=== PATIENT | female | born 1965 | race Hispanic/Latino ===

== ENCOUNTER 2024-02-25 06:48 | Emergency (ER) | payer OTHER ==
[~2024-02-25] VITALS: Ht 152.4 cm; Wt 59.0 kg
[2024-02-25 06:48] VITALS: TEMP 97.7
[~2024-02-25 06:48] MED LIST: CEFUROXIME250 MG PO; HYDROCODON-ACE1 EA11 PO; IBUPROFEN600 MG PO; ONDANSETRON ODT4 MG PO
[2024-02-25 07:20] LABS: BASOPHILS # (AUTO) 0.1 (0.0-0.1); BASOPHILS % 0.6 % (0.0-1.0); EOSINOPHILS # (AUTO) 0.2 (0.0-0.4); EOSINOPHILS % 1.6 % (0.0-6.0); HEMATOCRIT 44.6 % (34.2-44.1); HEMOGLOBIN 14.2 g/dL (12.0-16.0); LYMPHOCYTES # (AUTO) 3.2 (1.0-3.2); LYMPHOCYTES % 33.1 % (18.0-39.1); MEAN CORPUSCULAR HEMOGLOBIN 30.7 pg (28-32); MEAN CORPUSCULAR HGB CONC 31.8 g/dL (31-35); MEAN CORPUSCULAR VOLUME 96.3 fL (81-99); MONOCYTES # (AUTO) 0.4 (0.2-0.8); MONOCYTES % 4.1 % (4.4-11.3); NEUTROPHILS # (AUTO) 5.7 (2.1-6.9); NEUTROPHILS % 60.1 % (38.7-80.0); PLATELET COUNT 414 x10e3/uL (140-360); RED BLOOD COUNT 4.63 x10e6/uL (3.6-5.1); RED CELL DISTRIBUTION WIDTH 12.3 % (11.7-14.4); WHITE BLOOD COUNT 9.54 x10e3/uL (4.8-10.8)
[2024-02-25 07:35] LABS: ALBUMIN 3.9 g/dL (3.5-5.0); ALBUMIN/GLOBULIN RATIO 1.1 (0.8-2.0); BILIRUBIN,TOTAL 0.3 mg/dL (0.2-1.2); CALCIUM 9.5 mg/dL (8.4-10.2); CREATININE, SERUM 0.76 mg/dL (0.57-1.11); INFLUENZA A AG NEGATIVE (NEGATIVE); INFLUENZA B AG NEGATIVE (NEGATIVE); TOTAL PROTEIN 7.5 g/dL (6.5-8.1)
[2024-02-25 07:36] LABS: CORONAVIRUS COVID-19 AG NEGATIVE (NEGATIVE)
[2024-02-25] MEDS: DIAZEPAM INJ 5 MG/ML 2 ML IV ONE (07:39)
[2024-02-25] MEDS: ONDANSETRON HCL INJ 2MG/ML 2ML 2 MG/ML VIAL IV STA (07:39)
[2024-02-25] MEDS: MECLIZINE HCL 12.5 MG TAB PO ONE (07:39)
[2024-02-25] MEDS: SODIUM CHLORIDE 0.9% 1000ML 1,000 ML IV SCH (07:39)
[2024-02-25 07:41] LABS: TROPONIN I 0.001 ng/mL (0-0.300)
[2024-02-25 07:50] LABS: INR 0.85; PARTIAL THROMBOPLASTIN TIME 24.3 seconds (23.8-35.5); PROTHROMBIN TIME 12.1 seconds (11.9-14.5)
[2024-02-25] MEDS ORDERED: MECLIZINE HCL12.5 MG PO (08:32)
[2024-02-25] MEDS ORDERED: ONDANSETRON ODT4 MG PO (08:32)
[2024-02-25 08:45] VITALS: PULSE 52; RESP 16
[2024-02-25 09:19] VITALS: PULSE 66; RESP 15; TEMP 97.9; O2SAT 98
[2024-02-25] MEDS: PROMETHAZINE 12.5MG/ NACL 0.9% 12.5 MG/50 ML BAG IV ONE (09:19)
== END 2024-02-25 09:10 | disposition home or self-care (01) ==
LOC: ER 06:53
DX: R42 Dizziness and giddiness (principal); B34.9 Viral infection, unspecified; R05.9 Cough, unspecified; R11.2 Nausea with vomiting, unspecified; R53.81 Other malaise; Z11.52 Encounter for screening for COVID-19; Z87.442 Personal history of urinary calculi
CPT/HCPCS: 36415; 70450; 71045; 80053; 82550; 83735; 84484; 85025; 85610; 85730; 87428; 93005; 99284; J2405; J3360; J7030; J8597

== ENCOUNTER 2024-05-29 19:07 | Emergency (ER) | payer OTHER ==
[~2024-05-29] VITALS: Ht 147.3 cm; Wt 59.0 kg
[~2024-05-29 19:07] MED LIST changes: +MECLIZINE HCL12.5 MG PO
[2024-05-29 19:37] LABS: BASOPHILS % 0.2 % (0.0-1.0); EOSINOPHILS # (AUTO) 0.1 (0.0-0.4); HEMOGLOBIN 14.3 g/dL (12.0-16.0); LYMPHOCYTES # (AUTO) 1.4 (1.0-3.2); LYMPHOCYTES % 15.1 % (18.0-39.1); MEAN CORPUSCULAR VOLUME 88.1 fL (81-99); MONOCYTES # (AUTO) 0.5 (0.2-0.8); NEUTROPHILS # (AUTO) 7.4 (2.1-6.9); NEUTROPHILS % 78.4 % (38.7-80.0); PLATELET COUNT 380 x10e3/uL (140-360); RED BLOOD COUNT 4.77 x10e6/uL (3.6-5.1); RED CELL DISTRIBUTION WIDTH 12.5 % (11.7-14.4); WHITE BLOOD COUNT 9.47 x10e3/uL (4.8-10.8)
[2024-05-29] MEDS: ONDANSETRON HCL INJ 2MG/ML 2ML 2 MG/ML VIAL IV STA (20:00)
[2024-05-29] MEDS: SODIUM CHLORIDE 0.9% 1000ML 1,000 ML IV ONE (20:00)
[2024-05-29] MEDS: KETOROLAC TROMETHAMINE 30 MG/ML VIAL IV STA (20:00)
[2024-05-29 20:03] LABS: ALBUMIN 3.9 g/dL (3.5-5.0); ALBUMIN/GLOBULIN RATIO 1.1 (0.8-2.0); ANION GAP 15.8 mmol/L (8-16); BILIRUBIN,TOTAL 0.6 mg/dL (0.2-1.2); CREATININE, SERUM 0.73 mg/dL (0.57-1.11); POTASSIUM 3.8 mmol/L (3.5-5.1); TOTAL PROTEIN 7.6 g/dL (6.5-8.1)
[2024-05-29 20:34] LABS: BILIRUBIN,URINE NEGATIVE (NEGATIVE); CLARITY,URINE CLOUDY (CLEAR); COLOR,URINE YELLOW (YELLOW); GLUCOSE, URINE NEGATIVE (NEGATIVE); KETONES,URINE TRACE (NEGATIVE); LEUKOCYTE ESTERASE ,URINE MODERATE (NEGATIVE); NITRITE,URINE POSITIVE (NEGATIVE); PH,URINE 6 (5 - 7); PROTEIN,URINE DIPSTICK TRACE (NEGATIVE); URINE UROBILINOGEN 2 mg/dL (0.2 - 1)
[2024-05-29 20:38] LABS: BACTERIA,URINE MANY /HPF; RBC,URINE 0-5 /HPF (0-5); WBC,URINE (MAN) >50 /HPF (0-5)
[2024-05-29 20:39] LABS: EPITHELIAL CELLS,URINE FEW /LPF
[2024-05-29] MEDS: ACETAMINOPHEN 325 MG TAB PO ONE (21:17)
[2024-05-29] MEDS ORDERED: Morphine 2mg Syringe 2 MG/ML SYR ONE (22:08)
[2024-05-29] MEDS: Morphine 2mg Syringe 2 MG/ML SYR IV ONE (22:23)
[2024-05-29] MEDS ORDERED: CEFPODOXIME PR200 MG PO (22:42)
[2024-05-29 23:18] VITALS: PULSE 61; RESP 16; TEMP 98.9; O2SAT 96
== END 2024-05-29 23:22 | disposition home or self-care (01) ==
LOC: ER 19:10
DX: R10.30 Lower abdominal pain, unspecified (principal); N12 Tubulo-interstitial nephritis, not specified as acute or chronic; R11.2 Nausea with vomiting, unspecified; R19.7 Diarrhea, unspecified
CPT/HCPCS: 36415; 74176; 80053; 81001; 83690; 85025; 87086; 99284; J0696; J1885; J2270; J2405; J7030; 87186